=== PATIENT | female | born 1995 | race Caucasian/White ===

== ENCOUNTER → 2016-11-27 | Day surgery (SDC) | payer OTHER ==
[~2016-11-27] VITALS: Ht 165.1 cm; Wt 56.9 kg
[~2016-11-27] MED LIST: *MEPERIDINE 25 MG INJ VIAL PERIprocedural Use ONLY ONE; ACETAMINOPHEN 1000 MG/100 ML VIAL IV ONE; ACETAMINOPHEN/HYDROcodone 325 MG/5 MG TAB PO PRN; BUPIVACAINE/EPINEPHRINE 0.25% PF 10 ML VIAL ONE; CHLORHEXIDINE GLUCONATE 4% SOLN 120 ML BTL TOPICAL SCH; FAMOTIDINE 20 MG/2 ML VIAL ONE; GENTAMICIN SULFATE 80 MG/2 ML VIAL ONE; INSULIN HUMAN REGULAR 1,000 UNITS/10 ML VIAL SQ PRN; LACTATED RINGER'S 1000 ML IV SCH; LEVOTAB25 PO; METOPROLOL TARTRATE 25 MG TAB PO PRN; MIDAZOLAM HCL 2 MG/2 ML VIAL ONE; MORPHINE SULFATE 4 MG/ML INJ IV PUSH PRN; NORC5TAB PO; ONDANSETRON HCL 4 MG/2 ML VIAL IV PRN; ONDANSETRON HCL 4 MG/2 ML VIAL IV PUSH ONE; PHENYLEPH/NS 1000 MCG/10 ML SYR IV ONE; PROPOFOL 200 MG/20 ML AMP IV ONE; SODIUM CHLORID 0.9% 500 ML IV SCH; SODIUM CHLORIDE 0.9% FLUSH 10 ML FLUSH IV FLUSH PRN; SODIUM CHLORIDE 0.9% FLUSH 10 ML FLUSH IV FLUSH SCH; VANCOMYCIN 1000 MG/NS 250 ML (for <70 kg) IV SCH; ceFAZolin 2 GM PREMIX 50 ML IV SCH; ceFAZolin INJ 1,000 MG VIAL ONE
[2016-11-27 06:50] VITALS: BP 107/68; PULSE 84; RESP 18; TEMP 99.1; O2SAT 99
--- NOTE | 2016-11-27 08:30 | PD.OP ---
cc: Alexis Bassett MD Operative Report Date of Surgery: Nov 27, 2016 Preoperative Diagnosis: Painful hardware right ulna Postoperative Diagnosis: Procedure: Removal deep hardware right ulna Anesthesia: Gen. Surgeon: Alexis Bassett Apartment Leasing Agent(s): DEMAR Maldonado PA-C Operation and Findings: James is a 21-year-old female known to me from previous injuries. She has developed pain around her right ulna plate. She wished to have hardware removal. Informed consent was obtained and operative site was marked. She is brought to operating room and placed on table. She was given IV sedation and general anesthesia. Timeout procedure was performed. She received IV antibiotics. Right arm was prepped with alcohol followed by Hibiclens and draped in the usual sterile fashion. Procedure began with excision of her previous scar. The entire full-thickness scar was excised with scalpel. Next the plate was exposed. Scar tissue was incised with Bovie. Screws were now loosened with a screwdriver. A drill was now used to remove the screws. Plate was now elevated and removed. Wound was now thoroughly irrigated. Hemostasis was confirmed. Incision was infiltrated with quarter percent Marcaine with epinephrine. Subcutaneous tissues closed with 3-0 Vicryl and skin was closed with 3-0 nylon. Sterile dressings were applied. Patient was awakened and transferred to recovery room in stable condition. Alexis Bassett MD Nov 27, 2016 08:30
[2016-11-27 10:05] VITALS: BP 90/50; PULSE 86; RESP 16; TEMP 97.7; O2SAT 100
--- NOTE | 2016-11-27 14:45 | RADRPT ---
EXAM DATE/TIME: 11/27/2016 08:15 [facility] COMPARISON: WRIST RIGHT LIMITED(AP & LAT), June 17, 2016, 19:02. INDICATIONS : Hardware removal right wrist. MEDICAL HISTORY : None. SURGICAL HISTORY : ORIF right wrist. ENCOUNTER: Subsequent ACUITY: 4 - 6 months PAIN SCORE: Non-responsive. LOCATION: Right wrist. FINDINGS: 2 magnified C-arm spot views are centered over the right wrist. An orthopedic plate is seen involving the palmar cortical surface of the distal radius with good alignment. Defects from prior surgical pl ate involving the distal ulna. No fracture observed involving the ulna. CONCLUSION: Limited images as detailed above. Dale Solis Jr., MD on November 27, 2016 at 14:42 Board Certified Radiologist. This report was verified electronically.
== END | disposition home or self-care (01) ==
LOC: HSDC 05:50
PROVIDERS: ATTEND Orthopaedic Surgery Orthopaedic Trauma
DX: T84.84XA Pain due to internal orthopedic prosthetic devices, implants and grafts, initial encounter (principal); S52.601D Unspecified fracture of lower end of right ulna, subsequent encounter for closed fracture with routine healing
CPT/HCPCS: 01830; 20680; 73100; 76000; J0131; J0690; J1580; J2175; J2250; J2370; J2405; J3010; J3370; J7050